=== PATIENT | male | born 1965 | race Caucasian/White ===

== ENCOUNTER → 2016-04-30 | Outpatient (CLI) | payer BC ==
--- NOTE | 2016-04-27 10:55 | NUR ---
PREOP CALL PT'S REPORTS HE HAD CHEST PAIN IN THE LAST WEEK, STRESS RELATED. HE DID NOT TAKE A NITRO. 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 THIS WAS REPORTED TO Juliane MARQUEZ CRNA.
--- NOTE | 2016-04-27 11:06 | NUR ---
OR CANCELLED Juliane MARQUEZ CRNA CALLED; OR CANCELLED PER AMADO. DR. BELLE'S OFFICE WILL CALL THE PT AND LET HIM KNOW HIS SCOPE IS CANCELLED. Juliane MARQUEZ SPOKE TO Urban TOMLINSON APRN
[~2016-04-30] MED LIST: ASPI-557 PO; FISH1CAP2 PO; LIDOCAINE 1% (10mg/ml) 2ml SDV INJ ONE; LR 1,000 ML IV SCH; METO50TA5 PO; MULT-933 PO; NITR0.4T39 SL; ROSU20TA23 PO
== END ==
LOC: NSC 08:00 → EDSTATUS 08:30
PROVIDERS: ATTEND Surgery
DX: Z53.9 Procedure and treatment not carried out, unspecified reason (principal)